=== PATIENT | male | born 1950 | race Caucasian/White ===

== ENCOUNTER 2019-07-23 07:30 | Inpatient (IN) ==
[2019-07-23] MEDS ORDERED: NS 500 ML IV ONE (07:45)
[2019-07-23] MEDS: NS 1,000 ML IV ONE ×2 (08:23→11:50)
[2019-07-23 08:39] LABS: BASO# 0.03 X1000 (0.0-0.2); BASO% 0.3 % (0.0-0.8); EOS# 0.14 X1000 (0.0-0.7); EOS% 1.2 % (0.0-10.0); IMM GRAN# 0.07 X1000 (0.0-0.04); IMM GRAN% 0.6 % (0.0-0.5); LYMPH# 1.71 X1000 (1.2-3.4); LYMPH% 14.6 % (20.5-51.1); MCH 27.5 PG (27-31); MCHC 35.7 g/dL (33-37); MCV 76.9 FL (81-99); MONO# 0.98 X1000 (0.11-0.59); MONO% 8.4 % (1.7-9.3); MPV 10.3 FL (7.4-10.4); NEUT# 8.76 X1000 (1.4-6.5); NEUT% 74.9 % (42.2-75.2); PLT 280 X1000 (130-400); RBC 5.46 XMIL (4.7-6.1); RDW 15.1 % (11.5-14.5); WBC 11.69 X1000 (4.8-10.8)
[2019-07-23 08:45] LABS: INR 0.97
[2019-07-23 08:46] LABS: PTT 28.9 Seconds (22.3-41.8)
[2019-07-23 08:50] LABS: URINE SOURCE CLEAN CATCH
[2019-07-23 08:58] LABS: ESTIMATED GFR 33
[2019-07-23 08:58] LABS: BILIRUBIN URINE NEGATIVE (NEGATIVE); BLOOD URINE NEGATIVE (NEGATIVE); COLOR STRAW; GLUCOSE URINE NEGATIVE (NEGATIVE); KETONE URINE NEGATIVE (NEGATIVE); LEUKOCYTES URINE NEGATIVE (NEGATIVE); NITRITE URINE NEGATIVE (NEGATIVE); PROTEIN URINE NEGATIVE (NEGATIVE); SP GRAVITY URINE 1.006; TURBIDITY URINE CLEAR (CLEAR); UR EPITHELIAL CELLS <10 /HPF (<10); URINE BACTERIA NEGATIVE /HPF; URINE RBC <10 /HPF (<10); URINE WBC <10 /HPF (<10); UROBILINOGEN URINE NORMAL (NORMAL)
[2019-07-23 09:05] LABS: AGAP 15; ALB/GLOB RATIO 2.2; ALBUMIN 5.2 g/dL (3.5-5.0); ALKALINE PHOSPHATASE 129 U/L (32-122); BUN 31 mg/dL (8-22); CALCIUM 9.3 mg/dL (8.8-10.2); CHLORIDE 84 mmol/L (98-107); CK PROFILE 1041 U/L (24-204); COSMO 253; GLUCOSE 50 mg/dL (70-104); GOT 52 U/L (10-34); GPT 56 U/L (10-44); LIPASE 37 U/L (13-60); MAGNESIUM 1.8 mg/dL (1.5-2.7); PHOSPHORUS 4.2 mg/dL (2.7-4.5); POTASSIUM 3.5 mmol/L (3.5-5.1); SODIUM 124 mmol/L (136-145); TCO2 25 mmol/L (25-35); TOTAL PROTEIN 7.6 g/dL (6.3-8.3)
[2019-07-23 09:15] LABS: ACETONE SERUM NEGATIVE (NEGATIVE)
[2019-07-23 09:33] LABS: CK INDEX 1.8 (0.0-2.5); CK-MB 18.91 ng/mL (0.0-5.0)
[2019-07-23] MEDS ORDERED: D50W SYRINGE IV ONE ×2 (09:59→10:30)
[2019-07-23] MEDS ORDERED: D50W SYRINGE ONE (10:02)
[2019-07-23] MEDS ORDERED: ZOFRAN IV PRN (11:33)
[2019-07-23] MEDS ORDERED: NS 1,000 ML ONE (11:57)
[2019-07-23] MEDS ORDERED: ULTRAM PO PRN (16:10)
[2019-07-23] MEDS ORDERED: LEVEMIR SUBQ SCH (21:00)
[2019-07-23] MEDS ORDERED: LIPITOR PO SCH (21:00)
[2019-07-23] MEDS ORDERED: ELAVIL PO SCH (21:00)
[2019-07-24 03:22] LABS: CALCIUM 9.2 mg/dL (8.8-10.2); CREATININE 1.5 mg/dL (0.7-1.2); POTASSIUM 3.9 mmol/L (3.5-5.1)
[2019-07-24 06:14] LABS: BASO# 0.03 X1000 (0.0-0.2); BASO% 0.3 % (0.0-0.8); EOS# 0.13 X1000 (0.0-0.7); EOS% 1.3 % (0.0-10.0); HEMATOCRIT 39.3 % (42.0-52.0); HEMOGLOBIN 13.4 g/dL (14.0-18.0); IMM GRAN# 0.05 X1000 (0.0-0.04); IMM GRAN% 0.5 % (0.0-0.5); LYMPH# 1.12 X1000 (1.2-3.4); LYMPH% 10.8 % (20.5-51.1); MCHC 34.1 g/dL (33-37); MCV 79.1 FL (81-99); MONO# 0.85 X1000 (0.11-0.59); MONO% 8.2 % (1.7-9.3); MPV 10.5 FL (7.4-10.4); NEUT# 8.19 X1000 (1.4-6.5); NEUT% 78.9 % (42.2-75.2); PLT 229 X1000 (130-400); RBC 4.97 XMIL (4.7-6.1); RDW 15.8 % (11.5-14.5); WBC 10.37 X1000 (4.8-10.8)
[2019-07-24 06:34] LABS: ALB/GLOB RATIO 1.6; CALCIUM 9.4 mg/dL (8.8-10.2); CREATININE 1.6 mg/dL (0.7-1.2); MAGNESIUM 1.6 mg/dL (1.5-2.7); POTASSIUM 4.1 mmol/L (3.5-5.1); TOTAL BILIRUBIN 0.51 mg/dL (0.20-1.00); TOTAL PROTEIN 6.5 g/dL (6.3-8.3)
[2019-07-24] MEDS ORDERED: HUMALOG SUBQ SCH (07:00)
[2019-07-24] MEDS ORDERED: PRILOSEC PO SCH (07:00)
[2019-07-24] MEDS ORDERED: PRINIVIL PO SCH (09:00)
[2019-07-24] MEDS ORDERED: FLOMAX PO SCH (09:00)
[2019-07-24] MEDS ORDERED: PLAVIX PO SCH (09:00)
[2019-07-24] MEDS ORDERED: LOPID PO SCH (09:00)
[2019-07-24] MEDS ORDERED: VITAMIN B-12 PO SCH (09:00)
[2019-07-24] MEDS ORDERED: THERA M PLUS PO SCH (09:00)
[2019-07-24] MEDS ORDERED: VITAMIN E PO SCH (09:00)
[2019-07-24] MEDS ORDERED: HYDROCHLOROTHIAZIDE PO SCH (09:00)
[2019-07-24] MEDS ORDERED: ASPIRIN PO SCH (09:00)
[2019-07-24] MEDS ORDERED: AMARYL PO SCH (09:00)
[2019-07-24] MEDS ORDERED: PATIENT'S OWN MED PO SCH (09:00)
[2019-07-24] MEDS ORDERED: LOPRESSOR PO SCH (09:00)
[2019-07-24] MEDS ORDERED: LEVEMIR SUBQ SCH (09:00)
[2019-07-24 11:11] VITALS: BP 129/84
== END 2019-07-24 12:40 | disposition home or self-care (01) ==
LOC: ED 07:30 → 2N 10:55 → SUATTDRO 10:55
PROVIDERS: ATTEND Internal Medicine